=== PATIENT | female | born 1950 | race American Indian/Alaskan Native ===

== ENCOUNTER 2016-08-25 20:21 | Emergency (ER) | payer OTHER ==
[2016-08-25 22:39] LABS: Anion Gap 20 mmol/L; BUN/Creatinine Ratio 13.75; Blood Urea Nitrogen 11 mg/dL (7-17); Calcium 9.8 mg/dL (8.4-10.2); Carbon Dioxide 24 mmol/L (22-30); Chloride 101.4 mmol/L (98-107); Glucose 96 mg/dL (65-100); Potassium 4.1 mmol/L (3.6-5.0); Sodium 141 mmol/L (137-145)
[2016-08-25 22:41] LABS: Hematocrit 39.3 % (30.3-42.9); Mean Corpuscular HGB Conc 33 % (30-34); Mean Corpuscular Hemoglobin 28 pg (28-32); Mean Corpuscular Volume 85 fl (79-97); Platelet Count 235 K/mm3 (140-440); Red Blood Count 4.64 M/mm3 (3.65-5.03); Red Cell Distribution Width 13.9 % (13.2-15.2); White Blood Count 7.5 K/mm3 (4.5-11.0)
[2016-08-25 23:12] LABS: Blastocytes % (Manual) 0 %; Ovalocytes Few; Platelet Estimate Consistent w Auto
[2016-08-25 23:13] LABS: Diff Status Complete
[2016-08-26] MEDS ORDERED: VALIUM IV ONE (02:17)
[2016-08-26] MEDS ORDERED: TORADOL IM ONE (02:17)
--- NOTE | 2016-08-26 02:18 | Emergency Department Report ---
ED General Adult HPI - General Chief complaint: Headache Stated complaint: SINUS HEADACHE Time Seen by Provider: 08/26/16 02:08 Source: patient, RN notes reviewed, old records reviewed Mode of arrival: Ambulatory Limitations: No Limitations - History of Present Illness Initial comments: This is a 65-year-old female. She is previously unknown to me. Her primary care doctor is Dr. Green. She has a past medical history of intermittent chronic headaches and COPD. She presents to the ER with left-sided headache, left jaw pain. The headache is intermittent for the past 2 weeks. It is not sudden or thunderclap in nature. It did not reach maximal intensity within an hour. It is not the worst headache of her life. She reports a similar headache in February 2016. The headache worsens with palpation of the left jaw , and worsens when she chews and swallows food. There is no extremity weakness. There is no extremity numbness. There is no chest pain or shortness of breath. There is no vomiting, there is no ataxia. -: Gradual Location: head, face, mouth Severity scale (0 -10): 10 Quality: aching Consistency: intermittent Improves with: rest Worsens with: movement Associated Symptoms: headaches. denies: confusion, chest pain, cough, diaphoresis, fever/chills, loss of appetite, malaise, shortness of breath, syncope, weakness - Related Data Home Medications Medication Instructions Recorded Confirmed Last Taken amLODIPine 10 mg PO DAILY 08/25/16 08/25/16 Unknown Previous Rx's Medication Instructions Recorded Last Taken Type Ketorolac [Toradol] 10 mg PO Q6H PRN #20 tablet 08/26/16 Unknown Rx Allergies Allergy/AdvReac Type Severity Reaction Status Date / Time No Known Allergies Allergy Unverified 03/03/16 10:51 ED Review of Systems ROS: Stated complaint: SINUS HEADACHE Other details as noted in HPI Constitutional: denies: fever Eyes: denies: vision change ENT: denies: epistaxis Respiratory: denies: cough Cardiovascular: denies: chest pain Gastrointestinal: denies: abdominal pain Genitourinary: denies: dysuria Musculoskeletal: denies: back pain Skin: denies: lesions Neurological: headache ED Past Medical Hx - Past Medical History Hx Hypertension: Yes (during steroid use) Hx COPD: Yes - Surgical History Past Surgical History?: No - Social History Smoking Status: Never Smoker Substance Use Type: None - Medications Home Medications: Home Medications Medication Instructions Recorded Confirmed Last Taken Type amLODIPine 10 mg PO DAILY 08/25/16 08/25/16 Unknown History Ketorolac [Toradol] 10 mg PO Q6H PRN #20 tablet 08/26/16 Unknown Rx ED Physical Exam - General Limitations: No Limitations General appearance: alert, in no apparent distress - Head Head exam: Present: atraumatic, normocephalic - Eye Eye exam: Present: normal appearance, PERRL, EOMI. Absent: nystagmus - ENT ENT exam: Present: normal exam, normal orophraynx (no obvious plaques, no white lesions noted.), mucous membranes moist, normal external ear exam, other (there is reproducible left-sided TMJ tenderness. There is no trismus, malocclusion. There is no stridor or dysphonia. There is no temporal tenderness. There is no elevation at the base of the tongue. There is no fetid breath.) - Neck Neck exam: Present: normal inspection, full ROM. Absent: tenderness, meningismus - Respiratory Respiratory exam: Present: normal lung sounds bilaterally. Absent: respiratory distress, wheezes, rales, rhonchi, stridor, decreased breath sounds - Cardiovascular Cardiovascular Exam: Present: normal rhythm, bradycardia, normal heart sounds. Absent: tachycardia, irregular rhythm, systolic murmur, diastolic murmur, rubs, gallop - GI/Abdominal GI/Abdominal exam: Present: soft, normal bowel sounds. Absent: distended, tenderness, guarding, rebound, rigid, pulsatile mass - Extremities Exam Extremities exam: Present: normal inspection, full ROM, normal capillary refill. Absent: tenderness, pedal edema, joint swelling, calf tenderness - Back Exam Back exam: Present: normal inspection, full ROM. Absent: tenderness, CVA tenderness (R), CVA tenderness (L), muscle spasm, paraspinal tenderness, vertebral tenderness - Neurological Exam Neurological exam: Present: alert, oriented X3, normal gait, other (Extraocular movements intact. Tongue midline. No facial droop. Facial sensation intact to light touch in the V1, V2, V3 distribution bilaterally. 5 and 5 strength in 4 extremities.. Sensation is intact to light touch in 4 extremities.). Absent : motor sensory deficit - Psychiatric Psychiatric exam: Present: normal affect, normal mood - Skin Skin exam: Present: warm, dry, intact, normal color. Absent: rash ED Course Vital Signs 08/25/16 08/25/16 08/26/16 21:16 23:57 00:01 Temperature 98.6 F Pulse Rate 46 L 51 L 47 L Respiratory 20 18 18 Rate Blood Pressure 132/99 178/51 147/86 Blood Pressure 132/99 [Left] O2 Sat by Pulse 100 Oximetry 08/26/16 08/26/16 01:38 03:18 Temperature 98.7 F Pulse Rate 53 L 45 L Respiratory 18 18 Rate Blood Pressure Blood Pressure 142/70 142/64 [Left] O2 Sat by Pulse 99 98 Oximetry - Reevaluation(s) Reevaluation #1: 08/26/16 03:41 Differential diagnosis: Migraine headache, tension headache, cluster headache, TMJ related headache Assessment and plan: 65-year-old female with 2 weeks of headache. Has a GCS of 15, NIH score of 0. Physical examination neurologically unremarkable and within normal limits. There is reproducible left-sided TMJ discomfort. There is no temporal tenderness, there is no visual change, I think temporal arteritis is very unlikely. She felt somewhat improved after symptomatic therapy. She is instructed to follow up with an outpatient primary care doctor/ oral surgeon. Alternatively, she is suitable to follow up with an outpatient neurologist. In any event, it does not appear to be an emergent condition at this time. The patient will be discharged. Return precautions are extensively reviewed. ED Medical Decision Making - Lab Data Result diagrams: 08/25/16 21:44 08/25/16 21:44 Vital Signs 08/25/16 08/25/16 08/26/16 21:16 23:57 00:01 Temperature 98.6 F Pulse Rate 46 L 51 L 47 L Respiratory 20 18 18 Rate Blood Pressure 132/99 178/51 147/86 Blood Pressure 132/99 [Left] O2 Sat by Pulse 100 Oximetry 08/26/16 08/26/16 01:38 03:18 Temperature 98.7 F Pulse Rate 53 L 45 L Respiratory 18 18 Rate Blood Pressure Blood Pressure 142/70 142/64 [Left] O2 Sat by Pulse 99 98 Oximetry Lab Results 08/25/16 08/25/16 Range/Units 21:44 21:44 WBC 7.5 (4.5-11.0) K/mm3 RBC 4.64 (3.65-5.03) M/mm3 Hgb 13.0 (10.1-14.3) gm/dl Hct 39.3 (30.3-42.9) % MCV 85 (79-97) fl MCH 28 (28-32) pg MCHC 33 (30-34) % RDW 13.9 (13.2-15.2) % Plt Count 235 (140-440) K/mm3 Lymph % (Auto) Certified Meeting Professional Add Manual Diff Complete Total Counted 100 Seg Neutrophils % Certified Meeting Professional Seg Neuts % (Manual) 30.0 L (40.0-70.0) % Band Neutrophils % 0 % Lymphocytes % (Manual) 61.0 H (13.4-35.0) % Reactive Lymphs % (Man) 0 % Monocytes % (Manual) 6.0 (0.0-7.3) % Eosinophils % (Manual) 1.0 (0.0-4.3) % Basophils % (Manual) 2.0 H (0.0-1.8) % Metamyelocytes % 0 % Myelocytes % 0 % Promyelocytes % 0 % Blast Cells % 0 % Nucleated RBC % Not Reportable Seg Neutrophils # Man 2.3 (1.8-7.7) K/mm3 Band Neutrophils # 0.0 K/mm3 Lymphocytes # (Manual) 4.6 (1.2-5.4) K/mm3 Abs React Lymphs (Man) 0.0 K/mm3 Monocytes # (Manual) 0.5 (0.0-0.8) K/mm3 Eosinophils # (Manual) 0.1 (0.0-0.4) K/mm3 Basophils # (Manual) 0.2 H (0.0-0.1) K/mm3 Metamyelocytes # 0.0 K/mm3 Myelocytes # 0.0 K/mm3 Promyelocytes # 0.0 K/mm3 Blast Cells # 0.0 K/mm3 WBC Morphology Not Reportable Hypersegmented Neuts Not Reportable Hyposegmented Neuts Not Reportable Hypogranular Neuts Not Reportable Smudge Cells Not Reportable Toxic Granulation Not Reportable Toxic Vacuolation Not Reportable Dohle Bodies Not Reportable Pelger-Huet Anomaly Not Reportable Haydee Rods Not Reportable Platelet Estimate Consistent w auto Clumped Platelets Not Reportable Plt Clumps, EDTA Not Reportable Large Platelets Not Reportable Giant Platelets Not Reportable Platelet Satelliting Not Reportable Plt Morphology Comment Not Reportable RBC Morphology Not Reportable Dimorphic RBCs Not Reportable Polychromasia Not Reportable Hypochromasia Not Reportable Poikilocytosis Not Reportable Anisocytosis Not Reportable Microcytosis Not Reportable Macrocytosis Not Reportable Spherocytes Not Reportable Pappenheimer Bodies Not Reportable Sickle Cells Not Reportable Target Cells Not Reportable Tear Drop Cells Not Reportable Ovalocytes Few Helmet Cells Not Reportable [place] Bodies Not Reportable [place] Rings Not Reportable Robin Cells Not Reportable Bite Cells Not Reportable Crenated Cell Not Reportable Elliptocytes Not Reportable Acanthocytes (Spur) Not Reportable Rouleaux Not Reportable Hemoglobin C Crystals Not Reportable Schistocytes Not Reportable Malaria parasites Not Reportable Jorje Bodies Not Reportable Hem Pathologist Commnt No Sodium 141 (137-145) mmol/L Potassium 4.1 (3.6-5.0) mmol/L Chloride 101.4 (98-107) mmol/L Carbon Dioxide 24 (22-30) mmol/L Anion Gap 20 mmol/L BUN 11 (7-17) mg/dL Creatinine 0.8 (0.7-1.2) mg/dL Estimated GFR > 60 ml/min BUN/Creatinine Ratio 13.75 % Glucose 96 (65-100) mg/dL Calcium 9.8 (8.4-10.2) mg/dL - EKG Data 08/26/16 03:42 Sinus bradycardia, 47 beats per minute, prolonged QTc of 492 ms, not morphologically consistent with STEMI. Essentially unchanged from prior EKG from 03/15/2009. Critical care attestation.: If time is entered above; I have spent that time in minutes in the direct care of this critically ill patient, excluding procedure time. ED Disposition Clinical Impression: Headache Disposition: DISCHARGED TO HOME OR SELFCARE Is pt being admited?: No Does the pt Need Aspirin: No Condition: Stable Instructions: Temporomandibular Disorder (ED) Additional Instructions: Continue current outpatient medications. Follow up with an oral order entry specialist within the next 2 weeks. 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 Rest and avoid heavy lifting. Avoid strenuous physical activity. Take the pain medication as directed. Return to the ER right away with new pain , worsened pain, migration of pain, fevers or chills, intractable nausea or vomiting, inability to tolerate liquid feeds. Referrals: PRIMARY CARE,MD [Primary Care Provider] - 3-5 Days CHASTITY IZAGUIRRE MD [Staff Physician] - 3-5 Days YAS PRYOR MD [Staff Physician] - 3-5 Days
[2016-08-26 03:19] VITALS: BP 142/64
== END 2016-08-26 04:31 | disposition home or self-care (01) ==
LOC: ED 20:21
DX: R51 Headache (principal); I10 Essential (primary) hypertension; J44.9 Chronic obstructive pulmonary disease, unspecified
CPT/HCPCS: 36415; 80048; 85007; 85025; 93005; 93010; 96372; 96374; 99284; J1885; J3360